=== PATIENT | female | born 1940 | race African-American/Black ===

== ENCOUNTER → 2017-10-02 | Outpatient (CLI) | payer MEDICARE ==
[2014-04-27 09:52] VITALS: BP 218/96
--- NOTE | 2017-10-02 14:28 | RAD ---
DATE: 10/02/2017. EXAM: DIGITAL SCREEN BILAT W/CAD. HISTORY: Routine mammographic screening. COMPARISON: 09/12/2016. This study was interpreted with the benefit of Computerized Aided Detection (CAD). FINDINGS: The breast parenchyma shows scattered fibroglandular densities. Breast parenchyma level B.. There are no suspicious masses, microcalcifications or architectural distortion. A dense focus medially on the right CC view has stable correlates across remote studies and is likely benign. Scattered calcifications are benign. BI-RADS CATEGORY: 2 BENIGN FINDING(S). RECOMMENDED FOLLOW-UP: 12M 12 MONTH FOLLOW-UP. PQRS compliance statement: Patient information was entered into a reminder system with a target due date 10/02/2018 for the next mammogram. Mammography is a sensitive method for finding small breast cancers, but it does not detect them all and is not a substitute for careful clinical examination. A negative mammogram does not negate a clinically suspicious finding and should not result in delay in biopsying a clinically suspicious abnormality. "Our facility is accredited by the [employer] Mammography [employer]."
== END | disposition home or self-care (01) ==
LOC: MAMMO 12:45
PROVIDERS: ATTEND Family Medicine
DX: Z12.31 Encounter for screening mammogram for malignant neoplasm of breast (principal)
CPT/HCPCS: G0202; 77067

== ENCOUNTER → 2018-10-13 | Outpatient (CLI) | payer MEDICARE ==
[2014-04-27 09:52] VITALS: BP 218/96
--- NOTE | 2018-10-13 15:27 | RAD ---
DATE: 10/13/2018 EXAM: MAMMO PANCHO SCREENING BILATERAL HISTORY: Routine screening COMPARISON: 03/08/2015, 09/12/2016, and 10/02/2017 screen mammographic exams This study was interpreted with the benefit of Computerized Aided Detection (CAD). Breast Density: SCATTERED The breast parenchyma shows scattered fibroglandular densities. Breast parenchyma level B. FINDINGS: No new masses or distortion. No suspicious calcification cluster. IMPRESSION: Benign findings BI-RADS CATEGORY: 2 BENIGN FINDING(S) RECOMMENDED FOLLOW-UP: 12M 12 MONTH FOLLOW-UP PQRS compliance statement: Patient information was entered into a reminder system with a target due date in one year for the next mammogram. Mammography is a sensitive method for finding small breast cancers, but it does not detect them all and is not a substitute for careful clinical examination. A negative mammogram does not negate a clinically suspicious finding and should not result in delay in biopsying a clinically suspicious abnormality. "Our facility is accredited by the [employer] Mammography [employer]."
== END | disposition home or self-care (01) ==
LOC: MAMMO 12:17
PROVIDERS: ATTEND Family Medicine
DX: Z12.31 Encounter for screening mammogram for malignant neoplasm of breast (principal)
CPT/HCPCS: 77063; 77067

== ENCOUNTER → 2019-04-05 | Outpatient (CLI) | payer MEDICARE ==
[2014-04-27 09:52] VITALS: BP 218/96
--- NOTE | 2019-04-05 15:45 | CARD ---
MR#: [id number] Date of Study: 04/05/2019 Ordering Physician: GENEVA PRUETT, Referring Physician: GENEVA PRUETT, Tech: Radha Greenberg APPROVED REPORT EXAM: Two-dimensional and M-mode echocardiogram with Doppler and color Doppler. Other Information Quality : GoodHR: 54bpm INDICATION Murmur RISK FACTORS Hypertension Hyperlipidemia 2D DIMENSIONS RVDd3.1 (2.9-3.5cm)Left Atrium(2D)3.9 (1.6-4.0cm) IVSd1.3 (0.7-1.1cm)Aortic Root(2D)3.1 (2.0-3.7cm) LVDd4.7 (3.9-5.9cm)LVOT Diameter2.2 (1.8-2.4cm) PWd1.3 (0.7-1.1cm)LVDs3.0 (2.5-4.0cm) FS (%) 35.1 %SV64.8 ml LVEF(%)64.5 (>50%) Aortic Valve AoV Peak Leandro.166.0cm/sAoV VTI34.0cm AO Peak GR.11.0mmHgLVOT Peak Leandro.109.5cm/s LVOT VTI 22.29cmAO Mean GR.6mmHg BENITEZ (VMAX)1.54hv7CHI (VTI)2.43cm2 Mitral Valve MV E Hslqynuh28.2cm/sMV DECEL HNFX866sk MV A Chavgenh577.2cm/sMV RYI22cv E/A Ratio0.6MVA (PHT)3.29cm2 TDI E/Lateral E'10.9E/Medial E'10.2 Pulmonary Valve PV Peak Hufezsbe75.8cm/sPV Peak Grad.4mmHg Tricuspid Valve TR P. Hfwhscab342sr/sRAP CSQCXTBL1xuYi TR Peak Gr.48geBoRSRM93fiQl Pulmonary Vein S1 Qdieckgx82.5cm/sD2 Wbycxyco19.1cm/s PVa [id number] LEFT VENTRICLE The left ventricle is normal size. There is moderate concentric left ventricular hypertrophy. The lef t ventricular systolic function is normal and the ejection fraction is within normal range. The Eject ion Fraction is 50-55%. There is normal LV segmental wall motion. Transmitral Doppler flow pattern is Grade I-abnormal relaxation pattern. RIGHT VENTRICLE The right ventricle is normal size. There is normal right ventricular wall thickness. The right ventr icular systolic function is normal. ATRIA The left atrium size is normal. The right atrium size is normal. The interatrial septum is intact wit h no evidence for an atrial septal defect or patent foramen ovale as noted on 2-D or Doppler imaging. AORTIC VALVE The aortic valve is calcified but opens well. Doppler and Color Flow revealed trace aortic regurgitat ion. There is no significant aortic valvular stenosis. MITRAL VALVE The mitral valve is thickened but opens well. There is no evidence of mitral valve prolapse. There is no mitral valve stenosis. Doppler and Color-flow revealed trace mitral regurgitation. TRICUSPID VALVE The tricuspid valve is normal in structure and function. Doppler and Color Flow revealed trace tricus pid regurgitation with an estimated PAP of 29 mmHg. There is no tricuspid valve prolapse or vegetatio n. PULMONIC VALVE The pulmonic valve is not well visualized. Doppler and Color Flow revealed no pulmonic valvular regur gitation. There is no pulmonic valvular stenosis. GREAT VESSELS The aortic root is normal in size. The IVC is normal in size and collapses >50% with inspiration. PERICARDIAL EFFUSION There is a trace to mild circumferential pericardial effusion. Critical Notification Critical Value: No <Conclusion> There is moderate concentric left ventricular hypertrophy. The left ventricular systolic function is normal and the ejection fraction is within normal range. Th e Ejection Fraction is 50-55%. There is normal LV segmental wall motion. There is a trace to mild circumferential pericardial effusion. Signed by : Eleazar Bullard, Electronically Approved : 04/05/2019 15:44:36
== END | disposition home or self-care (01) ==
LOC: ECHO 14:08
PROVIDERS: ATTEND Internal Medicine Cardiovascular Disease
DX: I35.8 Other nonrheumatic aortic valve disorders (principal); I11.9 Hypertensive heart disease without heart failure; E78.5 Hyperlipidemia, unspecified
CPT/HCPCS: 93306

== ENCOUNTER → 2019-10-19 | Outpatient (CLI) | payer MEDICARE ==
[2014-04-27 09:52] VITALS: BP 218/96
--- NOTE | 2019-10-20 19:00 | RAD ---
Study: 2-D digital screening mammography-bilateral History: Routine screening. Technique: Bilateral digital mammographic routine views were obtained with CAD - computer aided detection. Comparison: Post recently on 10/13/2018. Findings: Breast Tissue Density B :The breast tissue is composed of mixed fatty and fibroglandular tissue. No newly identified mass, architectural distortion or suspicious microcalcifications throughout either breast. Impression: No significant interval change. BI-RADS Category 1: Negative. Normal interval followup. The patient will receive a letter with the results in the mail. Patient information is entered into the reminder system with a target due date for the next screening mammogram. The patient will receive a reminder. "Our facility is accredited by the [employer] Mammography [employer]."
== END | disposition home or self-care (01) ==
LOC: MAMMO 14:16
PROVIDERS: ATTEND Family Medicine
DX: Z12.31 Encounter for screening mammogram for malignant neoplasm of breast (principal)
CPT/HCPCS: 77067

== ENCOUNTER → 2021-06-19 | Outpatient (CLI) | payer MEDICARE ==
[2014-04-27 09:52] VITALS: BP 218/96
--- NOTE | 2021-06-19 15:20 | RAD ---
PROCEDURE: MG BILAT SCREEN+PANCHO HISTORY: The patient is 80 years old and is seen for Reason: screening mammogram / Spl. Instructions: / History: . COMPARISON: October 13, 2018 and October 19, 2019 TECHNIQUE: CC and MLO views of both breasts were obtained. Images were processed by the [facility] computer-aided detection system. DENSITY: There are scattered fibroglandular densities. FINDINGS: Right breast: Unchanged well-circumscribed right upper breast mass, likely intramammary l ymph node. Left breast: No suspicious macrocalcification, mass or architectural distortion. Benign-appearing armando cification. IMPRESSION: Negative. No evidence of malignancy. Recommend annual screening mammograms per [employer] guidelines. She will be due in one year. BI-RADS category 2 Benign Patient entered into a reminder system for annual screening mammogram. Electronically signed by: Jeff Rubio DO (06/19/2021 3:17 PM) [id number]
== END ==
LOC: MAMMO 12:39
PROVIDERS: ATTEND Family Medicine
DX: Z12.31 Encounter for screening mammogram for malignant neoplasm of breast (principal)
CPT/HCPCS: 77063; 77067